=== PATIENT | male | born 1955 | race Caucasian/White ===

== ENCOUNTER 2020-04-26 19:12 | Emergency (ER) | payer OTHER, MEDICARE ==
[~2020-04-26] VITALS: Ht 175.3 cm; Wt 104.3 kg
[2020-04-26 19:54] LABS: BASOPHILS ABSOLUTE AUTO 0.04 K/mm3 (0.00-0.23); BASOPHILS PERCENT AUTO 1 % (0-2); EOSINOPHILS ABSOLUTE AUTO 0.15 K/mm3 (0.00-0.68); EOSINOPHILS PERCENT AUTO 3 % (0-6); Hematocrit 41.3 % (37.0-53.0); Hemoglobin 14.5 g/dL (13.5-17.5); IMMATURE GRAN ABSOLUTE AUTO 0.01 K/mm3 (0.00-0.10); IMMATURE GRAN PERCENT AUTO 0 % (0-1); LYMPHOCYTES ABSOLUTE AUTO 1.55 K/mm3 (0.84-5.20); LYMPHOCYTES PERCENT AUTO 29 % (21-46); MONOCYTES ABSOLUTE AUTO 0.46 K/mm3 (0.16-1.47); MONOCYTES PERCENT AUTO 9 % (4-13); Mean Corpuscular HGB 31.5 pg (26.0-34.0); Mean Corpuscular HGB Conc 35.1 g/dL (31.5-36.5); Mean Corpuscular Volume 90 fL (80-100); Mean Platelet Volume 10.4 fL (9.1-12.4); NEUTROPHILS ABSOLUTE AUTO 3.18 K/mm3 (1.96-9.15); NEUTROPHILS PERCENT AUTO 59 % (41-73); Platelet Count 152 K/mm3 (150-400); RDW Coefficient Variation 12.7 % (11.7-14.2); RDW Standard Deviation 41.2 fL (35.1-46.3); Red Blood Cell Count 4.61 M/mm3 (4.30-5.90); White Blood Cell Count 5.39 K/mm3 (4.00-11.30)
[2020-04-26 20:13] LABS: Alanine Aminotransfer (ALT/SGP 33 U/L (12-78); Albumin, Blood 3.8 g/dL (3.4-5.0); Albumin/Globulin Ratio 1.1 (0.8-1.8); Alk Phos 88 U/L (50-136); Anion Gap 6 mmol/L (6-16); Aspartate Aminotrans (AST/SGOT 23 U/L (12-37); Bilirubin, Total 0.5 mg/dL (0.1-1.0); Blood Urea Nitrogen 19 mg/dL (8-24); CO2, Blood 28 mmol/L (21-32); Calcium, Blood 9.1 mg/dL (8.5-10.1); Chloride, Blood 111 mmol/L (98-108); Creatinine, Blood 0.76 mg/dL (0.60-1.20); Globulin, Blood 3.4 g/dL (2.2-4.0); Glomerular Filtration Rate >60 (60-); Glucose, Blood 81 mg/dL (70-99); Potassium, Blood 4.2 mmol/L (3.5-5.5); Sodium, Blood 145 mmol/L (136-145); Total Protein, Blood 7.2 g/dL (6.4-8.2)
[2020-04-26] MEDS ORDERED: TADA10TA PO (23:04)
[2020-04-26] MEDS ORDERED: LEVSOD150 PO (23:05)
[2020-04-26] MEDS ORDERED: ATORVASTATIN CA40 M1 PO (23:06)
[2020-04-27] MEDS ORDERED: MOTION RELIEF25 MG PO (00:46)
== END 2020-04-27 01:20 | disposition home or self-care (01) ==
LOC: ER 19:12
PROVIDERS: Emergency Medicine
DX: R42 Dizziness and giddiness (principal); R03.0 Elevated blood-pressure reading, without diagnosis of hypertension; Z79.899 Other long term (current) drug therapy
CPT/HCPCS: 36415; 80053; 85025; 93005; 93010; 99283-25; A9270-GY

== ENCOUNTER 2021-08-30 21:13 | Emergency (ER) | payer OTHER ==
[~2021-08-30] VITALS: Ht 175.3 cm; Wt 109.8 kg
[~2021-08-30 21:13] MED LIST: ATORVASTATIN CA40 M1 PO; LEVSOD150 PO; MOTION RELIEF25 MG PO; TADA10TA PO
[2021-08-30] MEDS ORDERED: MELO7.5 PO (22:58)
[2021-08-30] MEDS ORDERED: LISI20 PO (22:58)
[2021-08-30] MEDS ORDERED: VITAMIN D325 MC3 PO (22:59)
== END 2021-08-31 00:14 | disposition home or self-care (01) ==
LOC: ER 21:13
DX: S01.312A Laceration without foreign body of left ear, initial encounter (principal); W01.0XXA Fall on same level from slipping, tripping and stumbling without subsequent striking against object, initial encounter
CPT/HCPCS: 12013; 99282-25